=== PATIENT | female | born 1935 | race Caucasian/White ===

== ENCOUNTER 2016-05-27 22:50 | Emergency (ER) | payer BC ==
[~2016-05-27] VITALS: Ht 158.8 cm; Wt 68.0 kg
[~2016-05-27 22:50] MED LIST: ACT15 PO; ASPCH81X PO; CHOL2000 PO; CYAN100020 PO; GABA-113 PO; LEVO88TA3 PO; MIRA1TAB3 PO; PANT40TA PO; SACC250C PO; SERT-234 PO
[2016-05-27 22:57] VITALS: TEMP 36.6; Ht 158.8 cm; Wt 68.0 kg
--- NOTE | 2016-05-27 23:37 | EMERGENCY ROOM VISIT NOTE ---
History Report prepared by Mary: Jose Wells Under the Supervision of: Dr. Jennifer Wilkins D.O. First contact with patient: 23:04 Chief Complaint: FALL Stated Complaint: FELL,BUMP ON HEAD History of Present Illness The patient is a 80 year old female who presents to the Emergency Room with complaints of a fall that occurred 1 hour ago. The patient rates her pain a 6/ 10 in severity. The patient was at home when the fall occurred. She was filling up her cat's water dish. When she started to walk to put the dish back, her shoe got caught on something and she fell straight down. She hit her head but did not lose consciousness. She complains of a headache, right hand pain, and left leg pain. Her pain worsens with movement and palpation. She denies any other pain at this time. The patient is only on baby aspirin. She has been feeling well before the fall occurred. Source of History: patient Onset: 1 hour ago Position: head, arm (right), hand (right) Symptom Intensity: 6/10 Timing: constant Modifying Factors (Worsening): movement, other (palpation) Associated Symptoms: + headache, No LOC, No abdominal pain, No back pain, No chest pain, No neck pain Review of Systems See HPI for pertinent positives & negatives. A total of 10 systems reviewed and were otherwise negative. Past Medical & Surgical Medical Problems: (1) Ankle fracture (2) Atherosclerosis [place] Arteries Extremities Unspec (3) Chronic Liver Dis Nec (4) Concussion Nos (5) Diverticulitis Colon (W/O Ment Of Hemorrhage) (6) Hyperlipidemia Nec/Nos (7) Rhabdomyolysis Family History Cancer Diabetes mellitus Gallbladder disease Heart disease Hypertension Kidney disease Kidney stones Lung disease Social History Smoking Status: Never Smoker Alcohol Use: none Drug Use: none Marital Status: Housing Status: lives alone Occupation Status: retired Current/Historical Medications Scheduled Aspirin (Aspirin Chewable), 81 MG PO DAILY Cholecalciferol (Vitamin D3), 2,000 UNITS PO DAILY AT LUNCH Cyanocobalamin (Vitamin B12), 1,000 MCG PO DAILY AT LUNCH Gabapentin (Neurontin), 100 MG PO HS Levothyroxine Sodium (Levothyroxine Sodium), 88 MCG PO QAM Mirabegron (Myrbetriq Er), 50 MG PO DAILY 1300 Pioglitazone (Actos), 15 MG PO QAM Saccharomyces Boulardii (Florastor), 1 CAP PO BID Sertraline (Zoloft), 100 MG PO DAILY Allergies Coded Allergies: Tetanus Toxoid (Verified Allergy, Unknown, ARM SWELLING, 12/14/15) Aspirin (Verified Adverse Reaction, Unknown, GI UPSET, 12/14/15) Physical Exam Vital Signs Date Time Temp Pulse Resp B/P Pulse Ox O2 Delivery O2 Flow Rate FiO2 05/28/16 00:56 72 20 192/61 98 Room Air 05/27/16 22:57 36.6 70 21 190/85 98 Room Air Physical Exam HEENT: Head - Large cephalohematoma on the right head. Lateral hematoma above the right eye with a linear skin tear. Pupils are equal, round, and reactive to light. Extraocular eye muscles are intact and sclera are anicteric. Ears - bilaterally patent canals with no evidence of hemotympanum. Nose - moist nasal mucosa without evidence of trauma or discharge. Mouth - moist buccal mucosa with no trauma to the teeth or signs of malocclusion. Neck: The neck is supple and there is no pain to palpation over the posterior cervical spine and no obvious step-offs or deformities. There is no JVD or tracheal deviation. Chest: There are no signs of deformities, contusions or abrasions to the chest wall. There is no obvious crepitus or paradoxical chest rise. Heart: Regular, rate, and rhythm. There is a normal S1 and S2 with no murmurs, clicks, or gallops appreciated. Lungs: Clear to auscultation bilaterally with no wheezes, rales, or rhonchi. Abdomen: Soft, completely nontender, nondistended, with good bowel sounds. There is no sign of trauma such as contusions, abrasions or penetrations. There are no palpable pulsatile masses or hepatosplenomegaly. There is no guarding, rigidity, or rebound noted. Pelvis: Stable to rock and compression. Extremities: There are easily palpable peripheral pulses. Contusion over the left knee. Contusion at the base of the right fifth digit on the hand. Neuro: The patient is awake and alert and easily able to follow commands. Muscle strength is 5 out of 5 in all 4 extremities. Otherwise, neuro exam is unremarkable. Back: The entire thoracic, lumbar, and sacral spine were palpated. There are no obvious step-offs or deformities noted. There are no obvious signs of trauma such as contusions abrasions penetrations noted to the back. Medical Decision & Procedures ER Provider Diagnostic Interpretation: Radiology results are stated below per my review and the radiologist's interpretation: CT HEAD: No ICH, mass effect or edema. No skull fracture. Right periorbital and right frontal scalp contusion. Incidental right sphenoid sinus mucosal thickening. CT FACIAL: No acute facial fracture. Right periorbital and right frontal scalp contusion. Mild paranasal sinus disease. Incidental anatomic variant retropharyngeal course of the ICAs. CT C SPINE: No evidence of acute fracture or subluxation. Loss of normal cervical lordosis, likely positional versus secondary to muscular spasm. Radiologist: Jose Eduardo Alas MD 3 View Right Hand X-Ray No obvious fracture of dislocation. As reviewed by me ED Course 2304: Past medical records reviewed. The patient was evaluated in room C2. A complete history and physical exam was performed. Ice was applied to the patient's face. The patient for a CT scan of the brain, facial bones, and cervical spine as described above. She then went for plain x-rays of the right hand to rule out fracture. These were negative. 0055: I reassessed the patient's facial wound. It is actually a superficial linear skin tear. This was cleaned and dressed by nursing staff. On reexam of the patient's right hand, she was able to make a fist without any significant increased pain. 0100: Upon reevaluation, the patient is resting. I discussed findings and results with her. She verbalized agreement of the treatment plan. She was discharged home. Medical Decision The patient is a 80 year old female who presents to the ED with a fall. Differential diagnosis includes skull fracture, orbital fracture, closed head injury, facial laceration, C-spine injury, intracranial trauma, or hand fracture. The patient states that she was feeling in her usual state of health over the past couple of weeks. She denies any weakness or difficulty with walking. She has had no further falls. It seems that the patient simply tripped and fell to the ground. She had no loss of consciousness. There are no obvious fractures noted on CT scan or plain x-rays. I've encouraged patient to rest with her head elevated to minimize swelling. She can apply ice to the right side of her face. Impression Primary Impression: Contusion of multiple sites Scribe Attestation The scribe's documentation has been prepared under my direction and personally reviewed by me in its entirety. I confirm that the note above accurately reflects all work, treatment, procedures, and medical decision making performed by me. Departure Information Dispostion Home / Self-Care Referrals Kiera Guillaume M.D. (PCP) Forms HOME CARE DOCUMENTATION FORM, IMPORTANT VISIT INFORMATION Patient Instructions Falls Prevent Home, My [facility], Wound Care Additional Instructions Rest with your head elevated. Keep the wound on your face clean with soap and water. Cover with antibiotic ointment Apply ice to the right side of the face Take extra care with walking
[2016-05-28] MEDS ORDERED: GABA-112 PO (00:54)
[2016-05-28 00:56] VITALS: BP 192/61; PULSE 72; O2SAT 98
--- NOTE | 2016-05-28 06:32 | DIAGNOSTIC IMAGING REPORT ---
RIGHT HAND MIN 3 VIEWS ROUTINE CLINICAL HISTORY: eval for fracture Right trauma. Pain. COMPARISON: None. DISCUSSION: Generalized degenerative change. Denies osteopenia. No well-defined acute bony abnormality. Alignment is anatomic. There is no evidence for soft tissue swelling. IMPRESSION: Moderate generalized degenerative change. Osteopenia. No acute bony abnormality. Electronically signed by: Patrick Hernandez M.D. 05/28/2016 6:31 AM Dictated Date/Time: 05/28/2016 6:30 AM
--- NOTE | 2016-05-28 06:38 | DIAGNOSTIC IMAGING REPORT ---
CT OF THE CERVICAL SPINE CLINICAL HISTORY: Neck pain status post trauma COMPARISON STUDY: 04/16/2015 CT DOSE: TECHNIQUE: CT scan of the cervical spine was performed from the skull base to the thoracic inlet. Images are reviewed in the axial, sagittal, and coronal planes. IV contrast was not administered for this examination. FINDINGS: The visualized portions of the lung apices reveal no evidence of pneumothorax. There is biapical from a nodular scarring. Inflammatory changes are present within the right sphenoid sinus. The prevertebral soft tissues are normal. No fractures or subluxations are visualized. There is a slight reversal the normal cervical lordosis. There are multilevel degenerative changes present. IMPRESSION: Slight reversal of the normal cervical lordosis. No acute fractures or traumatic subluxations are visualized Electronically signed by: Michael Sparks M.D. 05/28/2016 6:37 AM Dictated Date/Time: 05/28/2016 6:35 AM
--- NOTE | 2016-05-28 06:49 | DIAGNOSTIC IMAGING REPORT ---
HEAD CT NONCONTRAST CT DOSE: HISTORY: Trauma. Pain. fall TECHNIQUE: Multiaxial CT images of the head were performed without the use of intravenous contrast. Comparison: None. Findings: The paranasal sinuses and mastoid air cells are clear. The calvarium and skull base are intact. The ventricles and sulci are within normal limits. There is no mass, hematoma, midline shift, or acute infarct. Right prefrontal soft tissue edema Impression: No acute intracranial abnormality. Right prefrontal extracranial soft tissue edema Electronically signed by: Patrick Hernandez M.D. 05/28/2016 6:47 AM Dictated Date/Time: 05/28/2016 6:44 AM
--- NOTE | 2016-05-28 06:50 | DIAGNOSTIC IMAGING REPORT ---
MAXILLOFACIAL CT CT DOSE: 910.81 mGy.cm HISTORY: Trauma. Pain. eval for right orbital fx. TECHNIQUE: Multiaxial CT images of the maxillofacial region were performed and reformatted in the coronal plane without the use of contrast. COMPARISON: None. FINDINGS: The visualized cervical spine, skull base, pterygoid plates, nasal bones, lamina papyracea, orbital floors, mandible, and zygomatic arches are intact. No fractures. The orbits are unremarkable. Right prefrontal and preorbital extracranial soft tissue edema IMPRESSION: No fractures within the maxillofacial region. Soft tissue edema. Electronically signed by: Patrick Hernandez M.D. 05/28/2016 6:49 AM Dictated Date/Time: 05/28/2016 6:48 AM
== END 2016-05-28 01:03 | disposition home or self-care (01) ==
LOC: C.EDB 22:53 → C.EDC 05-28 01:03
DX: T14.8 Other injury of unspecified body region (principal); W18.00XA Striking against unspecified object with subsequent fall, initial encounter; E78.5 Hyperlipidemia, unspecified; Z79.82 Long term (current) use of aspirin

== ENCOUNTER → 2016-07-31 | Outpatient (CLI) | payer BC ==
[~2016-07-31] MED LIST changes: +GABA-112 PO; -GABA-113 PO; +LEVO75TA5 PO; +METH1TAB3 PO; -PANT40TA PO
== END | disposition home or self-care (01) ==
LOC: C.LABSPEC 18:03
PROVIDERS: ATTEND Nurse Practitioner Adult Health
DX: N39.0 Urinary tract infection, site not specified (principal)

== ENCOUNTER → 2016-08-08 | Outpatient (CLI) | payer BC ==
[2016-08-08 18:27] LABS: BLOOD UREA NITROGEN 12 mg/dl (7-18)
== END | disposition home or self-care (01) ==
LOC: C.LABBFT 15:57
PROVIDERS: ATTEND Nurse Practitioner Adult Health
DX: E11.9 Type 2 diabetes mellitus without complications (principal); N39.0 Urinary tract infection, site not specified

== ENCOUNTER → 2016-08-13 | Outpatient (CLI) | payer BC ==
[~2016-08-13] MED LIST changes: +OPTIRAY 320 IV PRN
--- NOTE | 2016-08-13 12:32 | DIAGNOSTIC IMAGING REPORT ---
CT ABD/PELVIS COMBO CLINICAL HISTORY: Recurrent urinary tract infections. COMPARISON STUDY: 10/02/2011 TECHNIQUE: Unenhanced images were obtained through the abdomen and pelvis. The patient was injected with 50 cc of Optiray 320. After 5 minute delay, the patient was rescanned in a dynamic helical fashion during the additional administration of 43 cc of Optiray 320. CT DOSE: 1153.82 mGycm FINDINGS: Lower chest: There are coronary artery calcifications present. There is a left lower lobe calcified granuloma. Liver: The contrast-enhanced liver is normal in size, contour, and attenuation. There is no intrahepatic biliary ductal dilatation. The hepatic veins and portal veins are patent. Gallbladder: Surgically absent Spleen: Normal in size and attenuation. Pancreas: Unremarkable. Adrenal glands: Unremarkable. Kidneys: No renal, ureteral, or bladder calculi are visualized. No solid renal masses are visualized. There is a complete rotation of the right kidney. No collecting system or ureteral lesions are visualized. Bowel: There are no transition zones indicate bowel obstruction. No acute inflammatory changes are visualized. Peritoneum: There is no intraperitoneal free air or abdominal ascites. Vasculature: The abdominal aorta is normal in course and caliber. Adenopathy: None. Pelvic viscera: The uterus appears surgically absent. Skeletal structures: There is a scoliosis. There is a grade 1 spondylolisthesis of L5 and S1. IMPRESSION: 1. Surgically absent gallbladder and uterus 2. No renal, ureteral, or bladder calculi identified 3. No solid renal masses identified. No collecting system or ureteral lesions are visualized. Electronically signed by: Michael Sparks M.D. 08/13/2016 12:30 PM Dictated Date/Time: 08/13/2016 12:26 PM
== END | disposition home or self-care (01) ==
LOC: C.CTS 11:48
PROVIDERS: ATTEND Nurse Practitioner Adult Health
DX: N39.0 Urinary tract infection, site not specified (principal)

== ENCOUNTER → 2016-10-08 | Outpatient (CLI) | payer BC ==
[~2016-10-08] MED LIST changes: -OPTIRAY 320 IV PRN
[2016-10-08 17:53] LABS: BASO % 0.5 %; BASO ABS # 0.02 K/uL (0-0.2); COMPLETE YES; EOS % 1.7 %; HEMATOCRIT 37.1 % (37-47); LYMPH ABS # 1.31 K/uL (1.2-3.4); MEAN CELL VOLUME 97.1 fL (80-100); MEAN CORPUSCULAR HEMOGLOBIN 31.7 pg (25-34); MEAN CORPUSCULAR HGB CONC 32.6 g/dl (32-36); MEAN PLATELET VOLUME 10.5 fL (7.4-10.4); MONO % 11.4 %; NEUT % 55.4 %; PLATELET COUNT 199 K/uL (130-400); RED BLOOD COUNT 3.82 M/uL (4.2-5.4); WHITE BLOOD COUNT 4.22 K/uL (4.8-10.8)
[2016-10-08 18:30] LABS: AST/SGOT 17 U/L (15-37); BLOOD UREA NITROGEN 13 mg/dl (7-18); BUN/CREATININE RATIO 14.7 (10-20); CARBON DIOXIDE 29 mmol/L (21-32); CHLORIDE 104 mmol/L (98-107); GLUCOSE 128 mg/dl (70-99); POTASSIUM 3.8 mmol/L (3.5-5.1); SODIUM 142 mmol/L (136-145)
[2016-10-08 18:40] LABS: ALB/GLOB RATIO 1.1 (0.9-2); ALKALINE PHOSPHATASE 59 U/L (45-117); ALT/SGPT 17 U/L (12-78); THYROID STIMULATING HORMONE 0.301 uIu/ml (0.300-4.500)
[2016-10-08 19:02] LABS: CALCIUM 9.8 mg/dl (8.5-10.1)
[2016-10-09 07:03] LABS: ESTIMATED AVERAGE GLUCOSE 126 mg/dl; HA1C FLAG Normal (Normal)
== END | disposition home or self-care (01) ==
LOC: C.LABBFT 10:29
PROVIDERS: ATTEND Internal Medicine
DX: Z00.00 Encounter for general adult medical examination without abnormal findings (principal); E11.9 Type 2 diabetes mellitus without complications; R63.4 Abnormal weight loss; E03.9 Hypothyroidism, unspecified; E78.00 Pure hypercholesterolemia, unspecified; Z79.899 Other long term (current) drug therapy; R03.0 Elevated blood-pressure reading, without diagnosis of hypertension

== ENCOUNTER → 2016-11-20 | Outpatient (CLI) | payer BC ==
--- NOTE | 2016-11-20 17:14 | DIAGNOSTIC IMAGING REPORT ---
CHEST 2 VIEWS ROUTINE CLINICAL HISTORY: 81 years-old Female presenting with abnormal weight loss. TECHNIQUE: PA and lateral views of the chest were obtained. COMPARISON: 10/27/2015. FINDINGS: Cardiomediastinal silhouette normal. Pulmonary nodule at the left costophrenic angle measures 7 mm, previously 7 mm. Additional possible retrocardiac nodule measures 7 mm. These correlate to calcified granulomas noted on CT. Lungs and pleural spaces otherwise clear. Osseous structures and upper abdomen normal. IMPRESSION: No acute cardiopulmonary disease. Electronically signed by: Alexandru Rebolledo M.D. 11/20/2016 5:12 PM Dictated Date/Time: 11/20/2016 5:08 PM
== END | disposition home or self-care (01) ==
LOC: C.RAD1850 16:37
PROVIDERS: ATTEND Internal Medicine
DX: R63.4 Abnormal weight loss (principal)

== ENCOUNTER 2016-12-10 13:52 | Emergency (ER) | payer BC ==
[~2016-12-10] VITALS: Ht 160 cm; Wt 55.6 kg
[~2016-12-10 13:52] MED LIST changes: -LEVO75TA5 PO; -METH1TAB3 PO
[2016-12-10 13:58] VITALS: TEMP 36.7; Ht 160 cm; Wt 55.6 kg
[2016-12-10] MEDS ORDERED: SODIUM CHLORIDE 0.9% 1000ML 1,000 ML IV STA (14:30)
--- NOTE | 2016-12-10 14:46 | DIAGNOSTIC IMAGING REPORT ---
SINGLE VIEW CHEST CLINICAL HISTORY: Change in mental status. Generalized weakness. FINDINGS: An AP, portable, upright chest radiograph is compared to study dated 11/20/2016. The cardiomediastinal silhouette is unremarkable. Chronic interstitial thickening is unchanged. A calcified granuloma is again seen at the left lung base. No airspace consolidation, large pleural effusion, or pneumothorax is seen. Apical scarring is observed. The skeletal structures are osteopenic. The bony thorax is grossly intact. IMPRESSION: No active disease in the chest. Electronically signed by: Kings Radford M.D. 12/10/2016 2:45 PM Dictated Date/Time: 12/10/2016 2:44 PM
[2016-12-10 15:10] LABS: BASO % 0.2 %; BASO ABS # 0.02 K/uL (0-0.2); COMPLETE YES; EOS % 0.5 %; IG% 0.2 %; LYMPH % 15.9 %; LYMPH ABS # 1.35 K/uL (1.2-3.4); MEAN CELL VOLUME 94.7 fL (80-100); MEAN CORPUSCULAR HEMOGLOBIN 31.6 pg (25-34); MEAN CORPUSCULAR HGB CONC 33.3 g/dl (32-36); MEAN PLATELET VOLUME 9.8 fL (7.4-10.4); MONO % 9.8 %; NEUT % 73.4 %; PLATELET COUNT 208 K/uL (130-400); WHITE BLOOD COUNT 8.48 K/uL (4.8-10.8)
[2016-12-10 15:30] LABS: ALT/SGPT 25 U/L (12-78); AST/SGOT 57 U/L (15-37); BLOOD UREA NITROGEN 16 mg/dl (7-18); CALCIUM 9.7 mg/dl (8.5-10.1); CARBON DIOXIDE 28 mmol/L (21-32); CHLORIDE 104 mmol/L (98-107); GLUCOSE 90 mg/dl (70-99); POTASSIUM 3.6 mmol/L (3.5-5.1); SODIUM 140 mmol/L (136-145)
--- NOTE | 2016-12-10 15:30 | DIAGNOSTIC IMAGING REPORT ---
CT HEAD WITHOUT CONTRAST (CT) CLINICAL HISTORY: Altered mental status. Weakness. COMPARISON STUDY: 05/27/2016 TECHNIQUE: Axial CT of the brain is performed from the vertex to the skull base. IV contrast was not administered for this examination. A dose lowering technique was utilized adhering to the principles of ALARA. CT DOSE: 690.05 mGycm FINDINGS: No intra or extra-axial mass lesions are visualized. There is no CT evidence of acute cortical infarction. There is no evidence of midline shift. There is no acute hemorrhage. No calvarial fractures are visualized. There are patchy white matter hypodensities likely on a small vessel basis. There is no evidence of pathologic ventricular dilatation. There is no evidence of acute sinusitis IMPRESSION: No acute intracranial findings Electronically signed by: Michael Sparks M.D. 12/10/2016 3:29 PM Dictated Date/Time: 12/10/2016 3:28 PM
[2016-12-10 15:35] LABS: ALKALINE PHOSPHATASE 65 U/L (45-117); CKMB/CK RATIO 0.5 (0-3.0)
[2016-12-10] MEDS ORDERED: LEVO75TA5 PO (16:03)
[2016-12-10] MEDS ORDERED: METH1TAB3 PO (16:03)
[2016-12-10 17:50] VITALS: BP 153/60; PULSE 79; O2SAT 98
--- NOTE | 2016-12-10 18:29 | EMERGENCY ROOM VISIT NOTE ---
ED Visit Note First contact with patient: 14:21 Patient Name: Diana Hanna Unit Number: [id number] Date of : 1935 Patient Status: Registered Emergency Room Attending Doctor: Abundio Banks D.O. History ED Scribe v2 History Report prepared by Meshaibmary: Mauricio Esquivel Under the Supervision of: Dr. Abundio Banks D.O. First contact with patient: 14:21 Chief Complaint: SYNCOPE (NEAR SYNCOPE) Stated Complaint: SYNCOPE/FALL Nursing Triage Summary: Patient was outside today gardening and had a syncopal episode around 1300. Patient reports she fell from standing and thinks that she lost consciousness. Patient thinks that she hit her head when she fell. Patient was outside for about 40 minutes when her neighbors found her and called 911. Was feeling short of breath at the time of syncope. Reports pain in right foot. History of Present Illness The patient is a 81 year old female who presents to the Emergency Room with complaints of a sudden syncopal episode occurring around 1300 today while outside gardening. She states that she was out there for around 40 minutes in the heat. She states that she got very light headed, and everything went dark. The patient states that she hit her head when she fell, though she landed in the grass. The patient denies any shortness of breath, abdominal pain, or chest pain, and she states that she is not on any blood thinners. She states that she has a cough, though this is chronic. Source of History: patient Onset: 1300 Position: other (global) Quality: other (syncopal episode) Timing: other (sudden) Associated Symptoms: No chest pain, No SOB, No abdominal pain Review of Systems See HPI for pertinent positives & negatives. A total of 10 systems reviewed and were otherwise negative. Past Medical & Surgical Medical Problems: (1) Ankle fracture (2) Atherosclerosis [place] Arteries Extremities Unspec (3) Chronic Liver Dis Nec (4) Concussion Nos (5) Diverticulitis Colon (W/O Ment Of Hemorrhage) (6) Hyperlipidemia Nec/Nos (7) Rhabdomyolysis Family History Cancer Diabetes mellitus Gallbladder disease Heart disease Hypertension Kidney disease Kidney stones Lung disease Social History Smoking Status: Never Smoker Alcohol Use: none Drug Use: none Marital Status: Housing Status: lives alone Occupation Status: retired Current/Historical Medications Scheduled Aspirin (Aspirin Chewable), 81 MG PO DAILY Cholecalciferol (Vitamin D3), 2,000 UNITS PO DAILY AT LUNCH Cyanocobalamin (Vitamin B12), 1,000 MCG PO DAILY AT LUNCH Gabapentin (Neurontin), 100 MG PO HS Levothyroxine Sodium (Levothyroxine Sodium), 1 TAB PO DAILYBB Methenamine Mandelate (Methenamine Mandelate), 1 TAB PO DAILY Mirabegron (Myrbetriq Er), 50 MG PO DAILY 1300 Pioglitazone (Actos), 15 MG PO QAM Saccharomyces Boulardii (Florastor), 1 CAP PO BID Sertraline (Zoloft), 100 MG PO DAILY Allergies Coded Allergies: Tetanus Toxoid (Verified Allergy, Unknown, ARM SWELLING, 12/14/15) Aspirin (Verified Adverse Reaction, Unknown, GI UPSET, 12/14/15) Physical Ex ED Scribe v2 Physical Exam Vital Signs Date Time Temp Pulse Resp B/P (MAP) Pulse Ox O2 Delivery O2 Flow Rate FiO2 12/10/16 15:35 79 18 179/62 99 Room Air 12/10/16 14:51 75 142/51 99 Room Air 70 153/62 87 119/76 12/10/16 14:19 79 12/10/16 13:58 36.7 85 18 100/56 96 Room Air Physical Exam CONSTITUTIONAL/VITAL SIGNS: Reviewed / noted above. GENERAL: Non-toxic in appearance. INTEGUMENTARY: Warm, dry, and [place]. HEAD: Normocephalic. EYES: without scleral icterus or trauma. ENT/OROPHARYNX: clear and moist. LYMPHADENOPATHY/NECK: Is supple without lymphadenopathy or meningismus. RESPIRATORY: Lungs clear and equal. CARDIOVASCULAR: Regular rate and rhythm. GI/ABDOMEN: Soft and nontender. No organomegaly or pulsatile mass. No rebound or guarding. Normal bowel sounds. EXTREMITIES: Warm and well perfused. BACK: No CVA tenderness. NEUROLOGICAL: Intact without focal deficits. PSYCHIATRIC: normal affect. MUSCULOSKELETAL: Normally developed with good muscle tone. Procedures ED Scribe v2 Medical Decision & Procedures ER Provider Diagnostic Interpretation: Radiology results as stated below per my review and radiologist interpretation: CT HEAD WITHOUT CONTRAST (CT) CLINICAL HISTORY: Altered mental status. Weakness. COMPARISON STUDY: 05/27/2016 TECHNIQUE: Axial CT of the brain is performed from the vertex to the skull base. IV contrast was not administered for this examination. A dose lowering technique was utilized adhering to the principles of ALARA. CT DOSE: 690.05 mGycm FINDINGS: No intra or extra-axial mass lesions are visualized. There is no CT evidence of acute cortical infarction. There is no evidence of midline shift. There is no acute hemorrhage. No calvarial fractures are visualized. There are patchy white matter hypodensities likely on a small vessel basis. There is no evidence of pathologic ventricular dilatation. There is no evidence of acute sinusitis IMPRESSION: No acute intracranial findings Electronically signed by: Michael Sparks M.D. 12/10/2016 3:29 PM Dictated Date/Time: 12/10/2016 3:28 PM SINGLE VIEW CHEST CLINICAL HISTORY: Change in mental status. Generalized weakness. FINDINGS: An AP, portable, upright chest radiograph is compared to study dated 11/20/2016. The cardiomediastinal silhouette is unremarkable. Chronic interstitial thickening is unchanged. A calcified granuloma is again seen at the left lung base. No airspace consolidation, large pleural effusion, or pneumothorax is seen. Apical scarring is observed. The skeletal structures are osteopenic. The bony thorax is grossly intact. IMPRESSION: No active disease in the chest. Electronically signed by: Kings Radford M.D. 12/10/2016 2:45 PM Dictated Date/Time: 12/10/2016 2:44 PM Laboratory Results 12/10/16 14:55 Red Blood Count 3.80, Mean Corpuscular Volume 94.7, Mean Corpuscular Hemoglobin 31.6, Mean Corpuscular Hemoglobin Concent 33.3, Mean Platelet Volume 9.8, Neutrophils (%) (Auto) 73.4, Lymphocytes (%) (Auto) 15.9, Monocytes (%) (Auto) 9.8, Eosinophils (%) (Auto) 0.5, Basophils (%) (Auto) 0.2, Neutrophils # (Auto) 6.22, Lymphocytes # (Auto) 1.35, Monocytes # (Auto) 0.83, Eosinophils # (Auto) 0.04, Basophils # (Auto) 0.02 12/10/16 14:55 Test 12/10/16 14:55 White Blood Count 8.48 K/uL (4.8-10.8) Red Blood Count 3.80 M/uL (4.2-5.4) Hemoglobin 12.0 g/dL (12.0-16.0) Hematocrit 36.0 % (37-47) Mean Corpuscular Volume 94.7 fL (80-100) Mean Corpuscular Hemoglobin 31.6 pg (25-34) Mean Corpuscular Hemoglobin Concent 33.3 g/dl (32-36) Platelet Count 208 K/uL (130-400) Mean Platelet Volume 9.8 fL (7.4-10.4) Neutrophils (%) (Auto) 73.4 % Lymphocytes (%) (Auto) 15.9 % Monocytes (%) (Auto) 9.8 % Eosinophils (%) (Auto) 0.5 % Basophils (%) (Auto) 0.2 % Neutrophils # (Auto) 6.22 K/uL (1.4-6.5) Lymphocytes # (Auto) 1.35 K/uL (1.2-3.4) Monocytes # (Auto) 0.83 K/uL (0.11-0.59) Eosinophils # (Auto) 0.04 K/uL (0-0.5) Basophils # (Auto) 0.02 K/uL (0-0.2) RDW Standard Deviation 51.9 fL (36.4-46.3) RDW Coefficient of Variation 14.9 % (11.5-14.5) Immature Granulocyte % (Auto) 0.2 % Immature Granulocyte # (Auto) 0.02 K/uL (0.00-0.02) Anion Gap 8.0 mmol/L (3-11) Est Creatinine Clear Calc Drug Dose 35.2 ml/min Estimated GFR () 60.3 Estimated GFR (Non- 52.1 BUN/Creatinine Ratio 16.0 (10-20) Calcium Level 9.7 mg/dl (8.5-10.1) Total Bilirubin 0.7 mg/dl (0.2-1) Direct Bilirubin 0.2 mg/dl (0-0.2) Aspartate Amino Transf (AST/SGOT) 57 U/L (15-37) Alanine Aminotransferase (ALT/SGPT) 25 U/L (12-78) Alkaline Phosphatase 65 U/L (45-117) Total Creatine Kinase 796 U/L (26-192) Creatine Kinase MB 3.7 ng/ml (0.5-3.6) Creatine Kinase MB Ratio 0.5 (0-3.0) Troponin I < 0.015 ng/ml (0-0.045) Total Protein 7.2 gm/dl (6.4-8.2) Albumin 3.7 gm/dl (3.4-5.0) Laboratory results as stated above per my review. Medications Administered Medications (Trade) Dose Ordered Sig/Ronnie Route Start Time Stop Time Status Last Admin Dose Admin Sodium Chloride 1,000 ml @ 250 mls/hr Q4H STAT IV 12/10/16 14:30 12/10/16 18:29 12/10/16 14:30 250 MLS/HR ED Course 1423: Previous medical records were reviewed. The patient was evaluated in room A2. A complete history and physical examination was performed. 1430: Sodium Chloride 1000 ml @ 250 mls/hr IV 1601: On reevaluation, the patient is feeling well. I discussed the results and findings with the patient. She verbalized agreement of the treatment plan. She was discharged home. Medical Decision Differential includes acute coronary syndrome, myocardial infarction, CVA, TIA, anemia, infection, pneumonia, UTI, pyelonephritis, poor nutrition, dehydration, electrolyte disturbance,hypoglycemia. This is an 81-year-old female who presents to the ED with a chief complaint of syncope. The patient states that she will was outside pulling weeds for about 40 minutes then developed lightheadedness and reportedly passed out. She states that she is not sure how long she was out for. The neighbors came over and found her and contacted EMS. The patient states that she was out in the heat too long. His occurred around 1 PM today. The patient denies any significant symptoms at this time other than feeling tired. Her vital signs are normal. Her physical and neurologic exam are unremarkable. CT scan the brain did not show acute disease. A chest x-ray did not show acute disease. CBC and complete metabolic panel were unremarkable. Troponin is negative. Orthostatic vital signs were negative. The patient was treated with IV fluids while here. On reassessment, she was told results of tests. She remains asymptomatic. The patient wants to go home. She was told to return for any worsening or new concerns. She is also going to follow-up with her PCP for recheck. Medication Reconcilliation Current Medication List: was personally reviewed by me Blood Pressure Screening Patient's blood pressure: Normal blood pressure Impression Primary Impression: Syncope Scribe Attestation The scribe's documentation has been prepared under my direction and personally reviewed by me in its entirety. I confirm that the note above accurately reflects all work, treatment, procedures, and medical decision making performed by me. Departure ED Scribe v2 Departure Information Dispostion Home / Self-Care Referrals Kiera Guillaume M.D. (PCP) Patient Instructions Fainting (Syncope) - [facility], My [facility] Additional Instructions Avoid excessive activity during hot episodes of the day. Follow-up with your doctor for further care and evaluation in 1-2 days. Return to the emergency department for worsening or new symptoms or any concerns. You have been examined and treated today on an emergency basis only. This is not a substitute for, or an effort to provide, complete comprehensive medical care. It is impossible to recognize and treat all injuries or illnesses in a single emergency department visit. It is therefore important that you follow up closely with your doctor. Call as soon as possible for an appointment.
== END 2016-12-10 19:10 | disposition home or self-care (01) ==
LOC: EDBD 13:52 → C.EDA 13:53
DX: R55 Syncope and collapse (principal); R05 Cough; E78.5 Hyperlipidemia, unspecified; Z79.82 Long term (current) use of aspirin; Z79.899 Other long term (current) drug therapy; Z87.19 Personal history of other diseases of the digestive system; Z87.828 Personal history of other (healed) physical injury and trauma; Z82.49 Family history of ischemic heart disease and other diseases of the circulatory system; Z83.3 Family history of diabetes mellitus; Z83.6 Family history of other diseases of the respiratory system; Z83.79 Family history of other diseases of the digestive system; Z84.1 Family history of disorders of kidney and ureter